=== PATIENT | male | born 1975 | race Caucasian/White ===

== ENCOUNTER 2018-10-18 10:04 | Emergency (ER) | payer MEDICAID ==
--- NOTE | 2018-10-18 11:12 | EDM.PDOC ---
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 Time Seen by Provider: 10/18/18 10:30 Source of Information: Reports: Patient History Limitations: Reports: No Limitations - History of Present Illness INITIAL COMMENTS - FREE TEXT/NARRATIVE: He lacerated his index finger this morning on a knife Onset: Today, Sudden Location: Reports: Other (Right index finger between DIP and PIP) Severity: Mild Improves with: Reports: Immobilization Right Finger-Index Pain Score (Numeric/FACES): 1 - Related Data Allergies Allergy/AdvReac Type Severity Reaction Status Date / Time No Known Drug Allergies Allergy Other Verified 10/18/18 10:24 Home Meds: Home Meds . [No Known Home Meds] 10/18/18 [History] Past Medical History - Past Health History Medical/Surgical History: Denies Medical/Surgical History Social & Family History - Tobacco Use Smoking Status *Q: Current Every Day Smoker Years of Tobacco use: 23 Packs/Tins Daily: 1 ED ROS GENERAL - Review of Systems Review Of Systems: ROS reveals no pertinent complaints other than HPI. ED EXAM, SKIN/RASH Exam: See Below Exam Limited By: No Limitations General Appearance: Alert, No Apparent Distress Ears: Normal External Exam Head: Atraumatic, Normocephalic Respiratory/Chest: No Respiratory Distress Cardiovascular: Regular Rate, Rhythm Extremities: Other (He has 2.7 cm laceration on medial side of right index finger. Laceration is straight, vertical. It is easily closed but bleeds easily. Cut clean without any apparent debris or contamination) Location, Skin: Other (index finger; right medial side) ED SKIN PROCEDURES - Laceration/Wound Repair Right Medial Digit - 2nd (Index) Appearance: Linear, Clean Distal NVT: Neuro & Vascular Intact, No Tendon Injury Skin Prep: Chlorhexidine (Hibiciens), Saline Exploration/Debridement/Repair: Wound Explored, No Foreign Material Found, Wound Margins Revised Closed with: Dermabond Lac/Wound length In cm: 2.7 Sterile Dressing Applied: Nurse Tetanus Status Addressed: Yes Complications: No Complication Description: none Course - Vital Signs Last Recorded V/S: Last Vital Signs Temp 97.4 F 10/18/18 10:22 Pulse 96 10/18/18 10:22 Resp 14 10/18/18 10:22 BP 142/90 H 10/18/18 10:22 Pulse Ox 97 08/18/19 10:22 Departure - Departure Time of Disposition: 11:17 Disposition: Home, Self-Care 01 Clinical Impression: Laceration of index finger of right hand without complication - Discharge Information *PRESCRIPTION DRUG MONITORING PROGRAM REVIEWED*: No *COPY OF PRESCRIPTION DRUG MONITORING REPORT IN PATIENT BERTRAM: No Instructions: Laceration Care, Adult, Stitches, Mark, or Adhesive Wound Closure, [id number] Referrals: PCP,None [Primary Care Provider] - Forms: ED Department Discharge - Assessment/Plan Plan: Laceration was irrigated well. 2.7 laceration was closed using forceps to close and Dermabond. This closed well He is instructed re: care of area and to follow up if s/s of infection or other problem Tube gauze ordered to protect wound and decrease movement. Splint is given to patient for when he removes the tube gauze to minimize flexion and pressure on wound
== END 2018-10-18 11:17 | disposition home or self-care (01) ==
LOC: VM.ED 10:04
DX: S61.210A Laceration without foreign body of right index finger without damage to nail, initial encounter (principal); F17.210 Nicotine dependence, cigarettes, uncomplicated; W26.0XXA Contact with knife, initial encounter
CPT/HCPCS: 12002; 99283

== ENCOUNTER 2019-03-27 00:54 | Emergency (ER) | payer MEDICAID ==
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
== END 2019-03-27 01:46 ==
LOC: VM.ED 00:54
DX: F10.10 Alcohol abuse, uncomplicated (principal)
CPT/HCPCS: 99283